=== PATIENT | female | born 1985 | race Two or more races ===

== ENCOUNTER 2020-02-06 05:30 | Inpatient (IN) | payer SELFPAY ==
[~2020-02-06] VITALS: Ht 152.4 cm; Wt 82.1 kg
[2020-02-06] MEDS ORDERED: IV RINGERS,LACTATED 1000ML 1,000 ML IV SCH ×3 (05:33→12:02)
[2020-02-06 06:14] LABS: BILIRUBIN,URINE NEGATIVE (NEG); CLARITY,URINE CLEAR; COLOR,URINE YELLOW; NITRITE,URINE NEGATIVE (NEG); PROTEIN,URINE NEGATIVE (NEG-TRACE); UROBILINOGEN,URINE 0.2 mg/dL (0.2 mg/dL)
[2020-02-06] MEDS ORDERED: TERBUTALINE 1 MG/ML VIAL. SQ PRN (07:00)
[2020-02-06] MEDS ORDERED: 0.9 % SODIUM CHLORIDE 10 ML DISP.SYRIN. IV PRN ×2 (07:00→13:00)
[2020-02-06] MEDS ORDERED: LIDOCAINE 1% PF 30 ML VIAL. INJ PRN (07:00)
[2020-02-06] MEDS ORDERED: ONDANSETRON PF 4 MG/2 ML VIAL. IVP PRN (07:00)
[2020-02-06] MEDS ORDERED: IBUPROFEN 400 MG TABLET. PO PRN ×2 (07:00→13:00)
[2020-02-06] MEDS ORDERED: BUTORPHANOL 2 MG/ML VIAL. IVP PRN ×2 (07:00)
[2020-02-06] MEDS ORDERED: MAG HYDROX/ALUMINUM HYD/SIMETH 30 ML ORAL.SUSP PO PRN ×2 (07:00→13:00)
[2020-02-06] MEDS ORDERED: ACETAMINOPHEN 325 MG TABLET. PO PRN ×2 (07:00→13:00)
[2020-02-06] MEDS ORDERED: OXYTOCIN 30 UNIT/500 ML PREMIX 500 ML IV PRN ×3 (07:00→13:00)
[2020-02-06] MEDS ORDERED: fentaNYL PF VIAL 100 MCG/2 ML VIAL IVP PRN ×3 (07:00)
[2020-02-06 07:02] LABS: BACTERIA,URINE MODERATE /HPF (0-FEW); RBC,URINE 0 /HPF (0-2); SQUAMOUS EPITHELIAL CELL,UR MANY /LPF; WBC,URINE >40 /HPF (0-4)
[2020-02-06 07:59] LABS: BASO # 0.1 x10^3/uL (0.0-0.2); BASO % 1 % (0-3); EOS # 0.1 x10^3/uL (0.0-0.7); EOS % 1 % (0-3); HEMOGLOBIN 13.9 g/dL (12.0-15.5); LYMPH # 2.1 x10^3/uL (1.0-4.8); LYMPH % 19 % (24-48); MEAN CORPUSCULAR HEMOGLOBIN 31 pg (25-35); MEAN CORPUSCULAR HGB CONC 34 g/dL (31-37); MEAN CORPUSCULAR VOLUME 91 fL (79-100); MONO # 0.8 x10^3/uL (0.0-1.1); MONO % 7 % (0-9); NEUT # 7.9 x10^3/uL (1.8-7.7); NEUT % 72 % (31-73); PLATELET COUNT 161 x10^3/uL (140-400); RED BLOOD COUNT 4.53 x10^6/uL (3.50-5.40)
[2020-02-06] MEDS ORDERED: PENICILLIN G K 5,000,000 UNIT in IV DEXTROSE 5% 100ML 100 ML IV ONE (08:00)
[2020-02-06] MEDS ORDERED: OXYTOCIN PREMIX 30 UNIT/500 ML NS BAG. IV ONE (08:00)
[2020-02-06 08:06] VITALS: BP 147/93
--- NOTE | 2020-02-06 08:30 | PDOC1 ---
OB - History Hx of Present Care: Good Care Ultrasounds: Normal mid trimester US Obstetrical Complications: None Medical Complications: None Past Family/Social History * Past Medical, Surgical, Family and Obstetric Histories reviewed from chart. Rubella: Immune RPR/VDRL: Negative GBS Status: Negative HBsAG: Negative OB - Chief Complaint & HPI Date of Admission: Date of Admission: Feb 06, 2020 at 05:30 Chief Complaint/History : 3 Para: 2 EGA: 37 Reason for admission: active labor (previous and desires ) Admission Nurse Assessment Rev: Yes OB - Admission Exam Physical Exam Vitals: VS - Last 72 Hours, by Label Date Time Temp Pulse Resp B/P (MAP) Pulse Ox O2 Delivery O2 Flow Rate FiO2 02/06/20 08:06 98.4 74 18 147/93 (111) 98.4 HEENT: Normal Heart: Regular Rate Lungs: Clear Abdomen: Gravid, Non tender, Soft Extremities: Edema Reflexes: Normal Cervical Dilatation: 4cm Effacement: 75% Station: -3 Membranes: Ruptured Amniotic Fluid: Clear Accelerations: Accelerations Present Decelerations: No decelerations Contractions on Admission: 6-10 Minutes Apart Intensity: Firm Text A: 37 wks IUP Previous c/s H/o and desires P: Admit active labor. NEGAR RITCHIE Jr, MD Feb 06, 2020 08:30
[2020-02-06] MEDS ORDERED: ROPIVacaine 0.2% PF 10 ML VIAL. ONE ×2 (08:32→09:00)
[2020-02-06] MEDS ORDERED: L&D EPIDURAL SYRINGE 50 ML ONE ×2 (08:32→12:00)
[2020-02-06] MEDS ORDERED: IV RINGERS,LACTATED 1000ML 1,000 ML IV ONE (08:36)
[2020-02-06] MEDS ORDERED: fentaNYL PF VIAL 100 MCG/2 ML VIAL IV ONE (08:45)
[2020-02-06] MEDS ORDERED: NALOXONE 0.4 MG/ML VIAL. IV PRN ×2 (08:45→12:15)
[2020-02-06] MEDS ORDERED: ePHEDrine PF IN SALINE 50 MG/10 ML SYRINGE. IV PRN ×2 (08:45→12:15)
[2020-02-06] MEDS ORDERED: L&D EPIDURAL 50 ML SYRINGE. ONE (09:00)
[2020-02-06] MEDS ORDERED: LIDOCAINE 2% PF 5 ML VIAL. ONE (11:32)
[2020-02-06] MEDS ORDERED: PENICILLIN G K 2,500,000 UNIT in IV DEXTROSE 5% 50 ML IV SCH (12:00)
[2020-02-06] MEDS ORDERED: ROPIVacaine 0.2% PF 10 ML VIAL. EPID PRN (12:15)
[2020-02-06] MEDS ORDERED: PHENYLEPH/MINERAL OIL/PETROLAT RECTAL OINTMENT TUBE. RC PRN (13:00)
[2020-02-06] MEDS ORDERED: oxyCODONE/APAP 5/325 1 TAB TABLET PO PRN (13:00)
[2020-02-06] MEDS ORDERED: HYDROCORTISONE 1% TOPICAL OINTMENT 30GM TUBE. TP PRN (13:00)
[2020-02-06] MEDS ORDERED: BENZOCAINE 20% TOPICAL AEROSOL SPRAY 57GM CAN. TP PRN (13:00)
[2020-02-06] MEDS ORDERED: SIMETHICONE 80 MG TAB.CHEW PO PRN (13:00)
[2020-02-06] MEDS ORDERED: MMR per PROTOCOL. MC PRN (13:00)
[2020-02-06] MEDS ORDERED: MAGNESIUM HYDROXIDE 2,400 MG/30 ML ORAL.SUSP. PO PRN (13:00)
[2020-02-06] MEDS ORDERED: diphenhydrAMINE HCL 25 MG CAPSULE PO PRN (13:00)
[2020-02-06] MEDS ORDERED: ZOLPIDEM 5 MG TABLET. PO PRN (13:00)
[2020-02-06] MEDS ORDERED: TDaP (Adacel) per PROTOCOL. MC PRN (13:00)
--- NOTE | 2020-02-06 13:00 | PDOC ---
VAGINAL DELIVERY DATE DATE: 02/06/20 TIME: 12:58 : 3 Para: 3 EGA: 37 VAGINAL DELIVERY: VTX VACCUM ASSISTED: No PLACENTA: Spontaneous 8/9 SEX: Male WEIGHT Weight [ 5 lbs. 4 oz] Nuchal Cord: No Amniotic Fluid: Clear PAIN: Epidural EPISIOTOMY: No EXTENSION: Yes (Right periurethral; hemostatic) REPAIRED WITH hemostatic EBL 300 ml COMPLICATIONS none CONDITION pt. stable Signs of Intrauterine Infectio: None Shoulder Dystocia: No NEGAR RITCHIE Jr, MD Feb 06, 2020 13:00
[2020-02-06 15:10] VITALS: BP 120/77
[2020-02-06 16:10] VITALS: BP 115/79
[2020-02-06 20:05] VITALS: BP 114/68
[2020-02-07 00:17] VITALS: BP 112/70
[2020-02-07 04:35] VITALS: BP 126/86
[2020-02-07 05:26] LABS: BASO # 0.1 x10^3/uL (0.0-0.2); BASO % 1 % (0-3); EOS # 0.1 x10^3/uL (0.0-0.7); EOS % 1 % (0-3); HEMATOCRIT 38.2 % (36.0-47.0); HEMOGLOBIN 12.9 g/dL (12.0-15.5); LYMPH # 3.1 x10^3/uL (1.0-4.8); LYMPH % 22 % (24-48); MEAN CORPUSCULAR HEMOGLOBIN 31 pg (25-35); MEAN CORPUSCULAR HGB CONC 34 g/dL (31-37); MEAN CORPUSCULAR VOLUME 91 fL (79-100); MONO % 7 % (0-9); NEUT # 9.6 x10^3/uL (1.8-7.7); NEUT % 69 % (31-73); PLATELET COUNT 158 x10^3/uL (140-400); RED BLOOD COUNT 4.21 x10^6/uL (3.50-5.40); RED CELL DISTRIBUTION WIDTH 13.6 % (11.5-14.5)
[2020-02-07] MEDS ORDERED: FERROUS SULFATE 325 MG TABLET. PO SCH (08:00)
[2020-02-07] MEDS: MULTIVITAMIN with MINERAL TABLET. PO SCH (08:59)
[2020-02-07] MEDS: DOCUSATE SODIUM 100 MG CAPSULE. PO PRN (08:59)
[2020-02-07 09:21] VITALS: BP 110/69
--- NOTE | 2020-02-07 12:16 | PDOC ---
OB Progress Note Date of Service 02/07/20 Time of Evaluation 1215 Notes Pt. feeling well. NO complaints. Lab Laboratory Tests Test 02/06/20 05:45 02/06/20 06:45 02/06/20 07:23 02/07/20 05:10 Urine Collection Type Void Urine Color Yellow Urine Clarity Clear Urine pH 6.0 (<5.0-8.0) Urine Specific [place] 1.010 (1.000-1.030) Urine Protein Negative mg/dL (NEG-TRACE) Urine Glucose (UA) Negative mg/dL (NEG) Urine Ketones (Stick) Negative mg/dL (NEG) Urine Blood Negative (NEG) Urine Nitrite Negative (NEG) Urine Bilirubin Negative (NEG) Urine Urobilinogen Dipstick 0.2 mg/dL (0.2 mg/dL) Urine Leukocyte Esterase Large (NEG) Urine RBC 0 /HPF (0-2) Urine WBC >40 /HPF (0-4) Urine Squamous Epithelial Cells Many /LPF Urine Bacteria Moderate /HPF (0-FEW) White Blood Count 11.0 x10^3/uL (4.0-11.0) 14.0 x10^3/uL (4.0-11.0) Red Blood Count 4.53 x10^6/uL (3.50-5.40) 4.21 x10^6/uL (3.50-5.40) Hemoglobin 13.9 g/dL (12.0-15.5) 12.9 g/dL (12.0-15.5) Hematocrit 41.0 % (36.0-47.0) 38.2 % (36.0-47.0) Mean Corpuscular Volume 91 fL (79-100) 91 fL (79-100) Mean Corpuscular Hemoglobin 31 pg (25-35) 31 pg (25-35) Mean Corpuscular Hemoglobin Concent 34 g/dL (31-37) 34 g/dL (31-37) Red Cell Distribution Width 14.0 % (11.5-14.5) 13.6 % (11.5-14.5) Platelet Count 161 x10^3/uL (140-400) 158 x10^3/uL (140-400) Neutrophils (%) (Auto) 72 % (31-73) 69 % (31-73) Lymphocytes (%) (Auto) 19 % (24-48) 22 % (24-48) Monocytes (%) (Auto) 7 % (0-9) 7 % (0-9) Eosinophils (%) (Auto) 1 % (0-3) 1 % (0-3) Basophils (%) (Auto) 1 % (0-3) 1 % (0-3) Neutrophils # (Auto) 7.9 x10^3/uL (1.8-7.7) 9.6 x10^3/uL (1.8-7.7) Lymphocytes # (Auto) 2.1 x10^3/uL (1.0-4.8) 3.1 x10^3/uL (1.0-4.8) Monocytes # (Auto) 0.8 x10^3/uL (0.0-1.1) 1.0 x10^3/uL (0.0-1.1) Eosinophils # (Auto) 0.1 x10^3/uL (0.0-0.7) 0.1 x10^3/uL (0.0-0.7) Basophils # (Auto) 0.1 x10^3/uL (0.0-0.2) 0.1 x10^3/uL (0.0-0.2) Treponema pallidum Antibody Nonreactive (Nonreactive) Coronavirus (PCR) Not detected (Not Detected) SARS-CoV-2 Antigen (Rapid) Negative (NEGATIVE) Laboratory Tests Test 02/07/20 05:10 White Blood Count 14.0 x10^3/uL (4.0-11.0) Red Blood Count 4.21 x10^6/uL (3.50-5.40) Hemoglobin 12.9 g/dL (12.0-15.5) Hematocrit 38.2 % (36.0-47.0) Mean Corpuscular Volume 91 fL (79-100) Mean Corpuscular Hemoglobin 31 pg (25-35) Mean Corpuscular Hemoglobin Concent 34 g/dL (31-37) Red Cell Distribution Width 13.6 % (11.5-14.5) Platelet Count 158 x10^3/uL (140-400) Neutrophils (%) (Auto) 69 % (31-73) Lymphocytes (%) (Auto) 22 % (24-48) Monocytes (%) (Auto) 7 % (0-9) Eosinophils (%) (Auto) 1 % (0-3) Basophils (%) (Auto) 1 % (0-3) Neutrophils # (Auto) 9.6 x10^3/uL (1.8-7.7) Lymphocytes # (Auto) 3.1 x10^3/uL (1.0-4.8) Monocytes # (Auto) 1.0 x10^3/uL (0.0-1.1) Eosinophils # (Auto) 0.1 x10^3/uL (0.0-0.7) Basophils # (Auto) 0.1 x10^3/uL (0.0-0.2) Medications Current Medications Ringer's Solution 1,000 ml @ 125 mls/hr Q8H IV Last administered on 02/06/20at 07:50; Start 02/06/20 at 05:33 Sodium Chloride (Normal Saline Flush) 3 ml QSHIFT PRN IV AFTER MEDS AND BLOOD DRAWS; Start 02/06/20 at 07:00 Ringer's Solution 1,000 ml @ 125 mls/hr Q8H IV ; Start 02/06/20 at 06:55; Stop 02/06/20 at 23:19; Status DC Butorphanol Tartrate (Stadol) 1 mg PRN Q1HR PRN IVP mild to moderate labor pain; Start 02/06/20 at 07:00 Butorphanol Tartrate (Stadol) 2 mg PRN Q1HR PRN IVP Severe labor pain; Start 02/06/20 at 07:00 Fentanyl Citrate (Fentanyl 2ml Vial) 50 mcg PRN Q20MIN PRN IVP Labor pain; Start 02/06/20 at 07:00 Fentanyl Citrate (Fentanyl 2ml Vial) 75 mcg PRN Q20MIN PRN IVP Labor pain; Start 02/06/20 at 07:00; Stop 02/06/20 at 23:19; Status DC Fentanyl Citrate (Fentanyl 2ml Vial) 100 mcg PRN Q20MIN PRN IVP Labor pain; Start 02/06/20 at 07:00; Stop 02/06/20 at 23:19; Status DC Acetaminophen (Tylenol) 650 mg PRN Q6HRS PRN PO MILD PAIN / TEMP > 100.3'F; Start 02/06/20 at 07:00; Stop 02/07/20 at 12:05; Status DC Ondansetron HCl (Zofran) 4 mg PRN Q4HRS PRN IVP NAUSEA/VOMITING; Start 02/06/20 at 07:00 Al Hydroxide/Mg Hydroxide (Mylanta Plus Xs) 30 ml PRN Q4HRS PRN PO HEARTBURN / GAS; Start 02/06/20 at 07:00; Stop 02/07/20 at 12:06; Status DC Terbutaline Sulfate (Brethine) 0.25 mg 1X PRN PRN SQ SEE COMMENTS; Start 02/06/20 at 07:00; Stop 02/07/20 at 06:59; Status DC Lidocaine HCl (Xylocaine 1% Pf 30ml Vial) 30 ml 1X PRN PRN INJ SEE COMMENTS; Start 02/06/20 at 07:00; Stop 02/08/20 at 06:59 Oxytocin/Sodium Chloride 500 ml @ 0 mls/hr CONT PRN IV SEE I/O RECORD; Start 02/06/20 at 07:00 Oxytocin/Sodium Chloride 500 ml @ 0 mls/hr CONT PRN PRN IV Post delivery bleeding; Start 02/06/20 at 07:00 Ibuprofen (Motrin) 800 mg PRN Q6HRS PRN PO PAIN Last administered on 02/06/20at 14:53; Start 02/06/20 at 07:00; Stop 02/07/20 at 12:06; Status DC Penicillin G Potassium [id number] unit/Dextrose 100 ml @ 100 mls/hr 1X ONCE IV Last administered on 02/06/20at 07:49; Start 02/06/20 at 08:00; Stop 02/06/20 at 09:08; Status DC Penicillin G Potassium [id number] unit/Dextrose 50 ml @ 100 mls/hr Q4H IV ; Start 02/06/20 at 12:00; Stop 02/06/20 at 10:03; Status DC Ropivacaine (Naropin 0.2%) 10 ml STK-MED ONCE .ROUTE ; Start 02/06/20 at 08:32; Stop 02/06/20 at 08:32; Status DC Fentanyl Citrate 50 ml @ As Directed STK-MED ONCE .ROUTE ; Start 02/06/20 at 08:32; Stop 02/06/20 at 08:33; Status DC Ringer's Solution 1,000 ml @ 0 mls/hr Q0M ONCE IV ; Start 02/06/20 at 08:36; Stop 02/06/20 at 08:40; Status DC Ephedrine Sulfate (ePHEDrine PF IN SALINE SYRINGE) 10 mg PRN Q2MIN PRN IV IF SBP<90; Start 02/06/20 at 08:45 Naloxone HCl (Narcan) 0.04 mg PRN Q1MIN PRN IV SEE COMMENTS; Start 02/06/20 at 08:45 Fentanyl Citrate (Fentanyl 2ml Vial) 100 mcg 1X ONCE IV ; Start 02/06/20 at 08:45; Stop 02/06/20 at 08:46; Status DC Lidocaine HCl (Lidocaine Pf 2% Vial) 5 ml STK-MED ONCE .ROUTE ; Start 02/06/20 at 11:32; Stop 02/06/20 at 11:33; Status DC Fentanyl Citrate 50 ml @ As Directed STK-MED ONCE .ROUTE ; Start 02/06/20 at 12:00; Stop 02/06/20 at 12:01; Status DC Ringer's Solution 1,000 ml @ 125 mls/hr Q8H IV ; Start 02/06/20 at 12:02; Stop 02/06/20 at 23:19; Status DC Ephedrine Sulfate (ePHEDrine PF IN SALINE SYRINGE) 10 mg PRN Q2MIN PRN IV IF SBP<90; Start 02/06/20 at 12:15 Naloxone HCl (Narcan) 0.04 mg PRN Q1MIN PRN IV SEE COMMENTS; Start 02/06/20 at 12:15 Ropivacaine (Naropin 0.2%) 20 ml 1X PRN PRN EPID PER ANESTHESIA; Start 02/06/20 at 12:15; Stop 02/07/20 at 12:14; Status DC Sodium Chloride (Normal Saline Flush) 10 ml QSHIFT PRN IV AFTER MEDS AND BLOOD DRAWS; Start 02/06/20 at 13:00 Oxytocin/Sodium Chloride 500 ml @ 62.5 mls/hr CONT PRN IV SEE I/O RECORD; Start 02/06/20 at 13:00; Stop 02/06/20 at 20:59; Status DC Acetaminophen (Tylenol) 650 mg PRN Q6HRS PRN PO MILD PAIN / TEMP > 100.3'F; Start 02/06/20 at 13:00 Ibuprofen (Motrin) 800 mg PRN Q8HRS PRN PO INFLAMMATION/PAIN PREVENTION; Start 02/06/20 at 13:00 Docusate Sodium (Colace) 100 mg PRN BID PRN PO HARD STOOL Last administered on 02/07/20at 08:59; Start 02/06/20 at 13:00 Magnesium Hydroxide (Milk Of Magnesia) 2,400 mg PRN DAILY PRN PO CONSTIPATION; Start 02/06/20 at 13:00 Al Hydroxide/Mg Hydroxide (Mylanta Plus Xs) 30 ml PRN Q4HRS PRN PO HEARTBURN / GAS; Start 02/06/20 at 13:00 Simethicone (Gas-X) 80 mg PRN AFTMEALHC PRN PO GAS / BLOATING; Start 02/06/20 at 13:00 Diphenhydramine HCl (Benadryl) 25 mg PRN Q6HRS PRN PO ITCHING; Start 02/06/20 at 13:00 Benzocaine (Americaine) 1 spray PRN QID PRN TP TOPICAL PAIN Last administered on 02/06/20at 14:53; Start 02/06/20 at 13:00 Phenyleph/Shark Oil/Min Oil/Petrol (Preparation H) 1 camacho PRN QID PRN RC RECTAL PAIN; Start 02/06/20 at 13:00 Hydrocortisone (Cortaid) 1 camacho PRN QID PRN TP PERINEAL PAIN; Start 02/06/20 at 13:00 Ferrous Sulfate (Feosol) 325 mg BIDWMEALS PO ; Start 02/07/20 at 08:00 Zolpidem Tartrate (Ambien) 5 mg PRN QHS PRN PO INSOMNIA, MAY REPEAT X1; Start 02/06/20 at 13:00 Info (Do NOT chart on this placeholder) 1 ea 1X PRN PRN MC SEE COMMENTS; Start 02/06/20 at 13:00 Info (Do NOT chart on this placeholder) 1 ea 1X PRN PRN MC SEE COMMENTS; Start 02/06/20 at 13:00 Oxycodone/ Acetaminophen (Percocet 5/325) 2 tab PRN Q4HRS PRN PO MODERATE PAIN, SEVERE PAIN; Start 02/06/20 at 13:00 Multivitamins (Thera M Plus) 1 tab DAILY PO Last administered on 02/07/20at 08:59; Start 02/07/20 at 09:00 Oxytocin/Sodium Chloride (Oxytocin Premix Infusion) 30 unit STK-MED ONCE IV ; Start 02/06/20 at 08:00; Stop 02/06/20 at 13:15; Status DC Exam Abd: soft, non tender, fundus firm Assessment PPD#1 s/p Plan of Care: Continue current Tx, Mgmt NEGAR RITCHIE Jr, MD Feb 07, 2020 12:16
[2020-02-07 17:06] VITALS: BP 134/81
[2020-02-07 23:08] VITALS: BP 129/81
[2020-02-08 05:11] VITALS: BP 121/82
--- NOTE | 2020-02-08 10:23 | PDOC3 ---
OB DISCHARGE SUMMARY DATE OF ADMISSION: 02/06/20 DATE OF DISCHARGE: 02/08/20 REASON FOR ADMISSION: Onset of labor INTRAPARTUM PROCEDURES: Spontanous Vag Deliv () DISCHARGE DIAGNOSIS: Term Delivered DISCHARGE INFORMATION: Activity (ad tom), Diet (regular), Instructions (pelvic rest x 6 wks) HOSPITAL COURSE Term gestation delivered vaginally without complications. NEGAR RITCHIE Jr, MD Feb 08, 2020 10:23
[2020-02-08] MEDS ORDERED: IBUP-1027 PO (10:24)
--- NOTE | 2020-02-08 10:24 | DISCH ---
DISCHARGE INSTRUCTIONS Condition on Discharge Condition on Discharge: Stable Activity After Discharge Activity Instructions for Disc: Activity as tolerated Lifting Instructions after Dis: No heavy lifting Driving Instructions after Dis: Do not drive today Diet after Discharge Diet after Discharge: Regular Contacting the DRJosselyn after DC Call your doctor for: Concerns you may have Follow-Up Follow up with: [facility] in 6 wks NEGAR RITCHIE Jr, MD Feb 08, 2020 10:24
[2020-02-08] MEDS: MULTIVITAMIN with MINERAL TABLET. PO SCH (10:47)
[2020-02-08] MEDS: DOCUSATE SODIUM 100 MG CAPSULE. PO PRN (10:47)
[2020-02-08 11:30] VITALS: BP 124/84
--- NOTE | 2020-02-08 15:41 | NUR ---
Discharge Discharge instructions given to patient and FOB per controller instructor phone #[phone]. No questions or concerns noted at this time. To follow up at [facility] in 6 weeks. Patient ambulated off unit with all her belongings baby secure in car seat.
== END 2020-02-08 15:45 | disposition home or self-care (01) | DRG 807 ==
LOC: 3 SO LND 05:30 → OBSVTOIN 06:58 → 3 NORTH 15:10
PROVIDERS: ADMIT Obstetrics & Gynecology; ATTEND Obstetrics & Gynecology
PROC: 10E0XZZ Delivery of Products of Conception, External Approach (ICD-10-PCS; principal; 2020-02-06)
PROC: 0UQMXZZ Repair Vulva, External Approach (ICD-10-PCS; 2020-02-06)
PROC: 3E0R3BZ Introduction of Anesthetic Agent into Spinal Canal, Percutaneous Approach (ICD-10-PCS; 2020-02-06)
PROC: 00HU33Z Insertion of Infusion Device into Spinal Canal, Percutaneous Approach (ICD-10-PCS; 2020-02-06)
DX: O71.82 Other specified trauma to perineum and vulva (principal); Z37.0 Single live birth; Z3A.37 37 weeks gestation of pregnancy; Z20.828 Contact with and (suspected) exposure to other viral communicable diseases
CPT/HCPCS: 36415; 81001; 85025; 86592; 86850; 86900; 86901; 87086; 87426; G0379; J2540; J2590; J2795; J3010; J7060; J7120; G0378; U0003-CS